=== PATIENT | male | born 1945 | race Caucasian/White ===

== ENCOUNTER 2017-03-02 11:14 | Inpatient (IN) | payer MEDICARE, OTHER ==
[~2017-03-02] VITALS: Ht 180.3 cm; Wt 86.0 kg
[2017-03-02 11:28] LABS: HEMATOCRIT 44.1 % (39.2-51.8); HEMOGLOBIN 14.9 g/dL (13.7-18.0); WHITE BLOOD COUNT 6.5 x10^3/uL (3.4-10)
[2017-03-02 11:39] LABS: ASPARTATE AMINO TRANSFERASE 14 U/L (15-37); BLOOD UREA NITROGEN 14 mg/dL (7-18)
[2017-03-02] MEDS ORDERED: PLEASE ENTER HEIGHT AND WEIGHT MC SCH (12:00)
[2017-03-02] MEDS ORDERED: POLYETHYLENE GLYCOL 17 GM PACKET PO PRN (12:30)
[2017-03-02] MEDS ORDERED: OXYcodone IR 5MG TABLET PO PRN (12:30)
[2017-03-02] MEDS ORDERED: morphine SULFATE 10 MG/ML, 1ML IVPush PRN (12:30)
[2017-03-02] MEDS ORDERED: ONDANSETRON 2MG/ML, 2ML IVPush PRN (12:30)
[2017-03-02] MEDS ORDERED: METF500T4 PO (12:44)
[2017-03-02] MEDS ORDERED: LISI5TAB7 PO (12:44)
[2017-03-02] MEDS ORDERED: SIMV40TA3 PO (12:44)
[2017-03-02] MEDS ORDERED: MULT-412 PO (12:44)
[2017-03-02] MEDS ORDERED: CHOL400C PO (12:44)
[2017-03-02 15:01] VITALS: BP 146/63
[2017-03-02] MEDS: SODIUM CHLORIDE 0.9% 1,000 ML IV SCH ×2 (15:15→22:16)
[2017-03-02] MEDS: FAMOTIDINE 20 MG/2 ML IVPush SCH (21:00)
[2017-03-02] MEDS: SIMVASTATIN 40 MG TABLET PO SCH (21:00)
[2017-03-03] MEDS: SODIUM CHLORIDE 0.9% 1,000 ML IV SCH (00:26)
[2017-03-03 04:00] VITALS: BP 136/67
[2017-03-03 04:28] LABS: HEMATOCRIT 41.6 % (39.2-51.8); HEMOGLOBIN 14.1 g/dL (13.7-18.0); WHITE BLOOD COUNT 9.3 x10^3/uL (3.4-10)
[2017-03-03 04:54] LABS: ASPARTATE AMINO TRANSFERASE 12 U/L (15-37); BLOOD UREA NITROGEN 13 mg/dL (7-18)
[2017-03-03] MEDS ORDERED: LISINOPRIL 5 MG TABLET PO SCH (09:00)
[2017-03-03] MEDS: SENNA/DOCUSATE TABLET PO SCH (10:02)
[2017-03-03] MEDS: TAMSULOSIN 0.4 MG CAP.ER.24H PO SCH (10:02)
[2017-03-03] MEDS: CARVEDILOL 6.25 MG TABLET PO SCH ×2 (10:02→20:55)
[2017-03-03] MEDS: FAMOTIDINE 20 MG/2 ML IVPush SCH ×2 (10:03→20:54)
[2017-03-03] MEDS: LISINOPRIL 10 MG TABLET PO SCH ×2 (10:03→20:54)
[2017-03-03] MEDS: ACETAMINOPHEN 325 MG TABLET PO PRN (13:24)
[2017-03-03] MEDS: INSULIN ASPART 100 UNITS/ML, PEN SQ-INSULIN SCH ×2 (17:33→21:00)
[2017-03-03] MEDS: SIMVASTATIN 40 MG TABLET PO SCH (20:55)
[2017-03-03] MEDS: TEMAZEPAM 15 MG CAPSULE PO PRN (23:00)
[2017-03-04 04:00] VITALS: BP 123/67
[2017-03-04] MEDS: INSULIN ASPART 100 UNITS/ML, PEN SQ-INSULIN SCH ×4 (07:00→21:12)
[2017-03-04] MEDS: FAMOTIDINE 20 MG/2 ML IVPush SCH ×2 (07:39→21:08)
[2017-03-04] MEDS: CARVEDILOL 6.25 MG TABLET PO SCH ×2 (07:40→21:08)
[2017-03-04] MEDS: LISINOPRIL 10 MG TABLET PO SCH (07:40)
[2017-03-04] MEDS: SENNA/DOCUSATE TABLET PO SCH (07:40)
[2017-03-04] MEDS: TAMSULOSIN 0.4 MG CAP.ER.24H PO SCH (07:41)
[2017-03-04] MEDS ORDERED: LISINOPRIL 10 MG TABLET PO ONE (09:00)
[2017-03-04 18:31] VITALS: BP 163/93
[2017-03-04] MEDS: LISINOPRIL 20 MG TABLET PO SCH (21:08)
[2017-03-04] MEDS: SIMVASTATIN 40 MG TABLET PO SCH (21:08)
[2017-03-04] MEDS: TEMAZEPAM 15 MG CAPSULE PO PRN (21:39)
[2017-03-04 23:48] VITALS: BP 173/81
[2017-03-05] VITALS (14 sets, daily range): BP systolic 132–187; BP diastolic 75–100
[2017-03-05] MEDS ORDERED: ENALAPRILAT 1.25 MG/ML, 2ML IV PRN (00:30)
[2017-03-05] MEDS ORDERED: hydrALAzine 20 MG/ML, 1ML IV PRN (04:30)
[2017-03-05 05:37] LABS: HEMATOCRIT 44.3 % (39.2-51.8); HEMOGLOBIN 15.1 g/dL (13.7-18.0); WHITE BLOOD COUNT 9.1 x10^3/uL (3.4-10)
[2017-03-05 05:48] LABS: ASPARTATE AMINO TRANSFERASE 10 U/L (15-37); BLOOD UREA NITROGEN 14 mg/dL (7-18)
[2017-03-05] MEDS: INSULIN ASPART 100 UNITS/ML, PEN SQ-INSULIN SCH ×4 (08:05→21:35)
[2017-03-05] MEDS: FAMOTIDINE 20 MG/2 ML IVPush SCH (09:00)
[2017-03-05] MEDS: SENNA/DOCUSATE TABLET PO SCH (11:02)
[2017-03-05] MEDS: TAMSULOSIN 0.4 MG CAP.ER.24H PO SCH (11:02)
[2017-03-05] MEDS: CARVEDILOL 6.25 MG TABLET PO SCH ×2 (11:02→21:33)
[2017-03-05] MEDS: LISINOPRIL 20 MG TABLET PO SCH ×2 (11:03→21:34)
[2017-03-05] MEDS: SIMVASTATIN 40 MG TABLET PO SCH (21:34)
[2017-03-05] MEDS: FAMOTIDINE 20 MG TABLET PO SCH (21:34)
[2017-03-06] VITALS (7 sets, daily range): BP systolic 151–170; BP diastolic 72–93
[2017-03-06] MEDS: ACETAMINOPHEN 325 MG TABLET PO PRN ×2 (00:44→15:18)
[2017-03-06] MEDS: TAMSULOSIN 0.4 MG CAP.ER.24H PO SCH (09:16)
[2017-03-06] MEDS: SENNA/DOCUSATE TABLET PO SCH (09:16)
[2017-03-06] MEDS: LISINOPRIL 20 MG TABLET PO SCH ×2 (09:17→20:40)
[2017-03-06] MEDS: FAMOTIDINE 20 MG TABLET PO SCH ×2 (09:17→20:45)
[2017-03-06] MEDS: CARVEDILOL 6.25 MG TABLET PO SCH ×2 (09:17→20:40)
[2017-03-06] MEDS: INSULIN ASPART 100 UNITS/ML, PEN SQ-INSULIN SCH ×4 (10:28→20:43)
[2017-03-06] MEDS ORDERED: hydrALAzine 20 MG/ML, 1ML IV PRN (10:30)
[2017-03-06] MEDS ORDERED: hydrALAzine 20 MG/ML, 1ML ONE ×2 (12:15→15:12)
[2017-03-06] MEDS: hydrALAzine 20 MG/ML, 1ML IV PRN ×3 (12:17→22:23)
[2017-03-06] MEDS ORDERED: AMLODIPINE 5 MG TABLET PO ONE (17:00)
[2017-03-06] MEDS: AMLODIPINE 5 MG TABLET PO SCH (17:09)
[2017-03-06] MEDS: ATORVASTATIN 20 MG TABLET PO SCH (20:40)
[2017-03-06] MEDS: ENALAPRILAT 1.25 MG/ML, 2ML IV PRN (23:36)
[2017-03-07 00:46] VITALS: BP 156/89
[2017-03-07] MEDS: hydrALAzine 20 MG/ML, 1ML IV PRN ×2 (01:21→18:13)
[2017-03-07 02:45] VITALS: BP 146/75
[2017-03-07] MEDS: INSULIN ASPART 100 UNITS/ML, PEN SQ-INSULIN SCH ×4 (07:53→22:09)
[2017-03-07 08:05] VITALS: BP 156/89
[2017-03-07] MEDS: FAMOTIDINE 20 MG TABLET PO SCH ×2 (08:32→22:03)
[2017-03-07] MEDS: CARVEDILOL 6.25 MG TABLET PO SCH ×2 (08:32→22:03)
[2017-03-07] MEDS: AMLODIPINE 5 MG TABLET PO SCH ×2 (08:32→22:02)
[2017-03-07] MEDS: TAMSULOSIN 0.4 MG CAP.ER.24H PO SCH (08:32)
[2017-03-07] MEDS: LISINOPRIL 20 MG TABLET PO SCH ×2 (08:33→22:03)
[2017-03-07] MEDS: SENNA/DOCUSATE TABLET PO SCH (08:33)
[2017-03-07] MEDS: BISACODYL 10 MG SUPP PR PRN ×2 (10:17→15:23)
[2017-03-07 14:00] VITALS: BP 148/82
[2017-03-07] MEDS ORDERED: GOLYTELY 4,000ML ORAL.SOL PO ONE (16:00)
[2017-03-07] MEDS ORDERED: ARTIFICIAL TEARS OPHTH SOLN 15ML EACHEYE PRN (16:00)
[2017-03-07 18:05] VITALS: BP 176/95
[2017-03-07] MEDS ORDERED: ONDANSETRON 2MG/ML, 2ML IVPush PRN (18:30)
[2017-03-07] MEDS ORDERED: POLYETHYLENE GLYCOL 17 GM PACKET PO PRN (18:30)
[2017-03-07] MEDS ORDERED: OXYcodone IR 5MG TABLET PO PRN (18:30)
[2017-03-07] MEDS: ATORVASTATIN 20 MG TABLET PO SCH (21:00)
[2017-03-07 21:21] VITALS: BP 142/72
[2017-03-08] MEDS: hydrALAzine 20 MG/ML, 1ML IV PRN (01:03)
[2017-03-08 01:30] VITALS: BP 179/83
[2017-03-08] MEDS: ENALAPRILAT 1.25 MG/ML, 2ML IV PRN (02:22)
[2017-03-08 03:23] VITALS: BP 147/78
[2017-03-08 05:33] LABS: BLOOD UREA NITROGEN 21 mg/dL (7-18)
[2017-03-08 08:13] VITALS: BP 151/73
[2017-03-08] MEDS: INSULIN ASPART 100 UNITS/ML, PEN SQ-INSULIN SCH ×4 (08:17→20:58)
[2017-03-08] MEDS: CARVEDILOL 6.25 MG TABLET PO SCH ×2 (08:17→20:59)
[2017-03-08] MEDS: LISINOPRIL 20 MG TABLET PO SCH ×2 (08:17→20:59)
[2017-03-08] MEDS: FAMOTIDINE 20 MG TABLET PO SCH ×2 (08:17→20:59)
[2017-03-08] MEDS: AMLODIPINE 5 MG TABLET PO SCH ×2 (08:18→20:59)
[2017-03-08] MEDS: TAMSULOSIN 0.4 MG CAP.ER.24H PO SCH (08:18)
[2017-03-08] MEDS: SENNA/DOCUSATE TABLET PO SCH (08:18)
[2017-03-08 15:00] VITALS: BP 151/78
[2017-03-08] MEDS ORDERED: FUROSEMIDE 40 MG/4 ML IV ONE (16:30)
[2017-03-08] MEDS ORDERED: POTASSIUM CHLORIDE 20 MEQ TAB.ER.PRT PO ONE (16:30)
[2017-03-08 20:59] VITALS: BP 155/78
[2017-03-08] MEDS: ATORVASTATIN 20 MG TABLET PO SCH (20:59)
[2017-03-09] VITALS (7 sets, daily range): BP systolic 135–165; BP diastolic 73–85
[2017-03-09] MEDS: ACETAMINOPHEN 325 MG TABLET PO PRN ×2 (00:46→17:33)
[2017-03-09] MEDS: TAMSULOSIN 0.4 MG CAP.ER.24H PO SCH (08:25)
[2017-03-09] MEDS: FAMOTIDINE 20 MG TABLET PO SCH ×2 (08:25→20:30)
[2017-03-09] MEDS: AMLODIPINE 5 MG TABLET PO SCH ×2 (08:25→20:30)
[2017-03-09] MEDS: LISINOPRIL 20 MG TABLET PO SCH ×2 (08:25→20:30)
[2017-03-09] MEDS: CARVEDILOL 6.25 MG TABLET PO SCH ×2 (08:25→20:30)
[2017-03-09] MEDS: SENNA/DOCUSATE TABLET PO SCH (08:26)
[2017-03-09] MEDS: INSULIN ASPART 100 UNITS/ML, PEN SQ-INSULIN SCH ×4 (08:26→20:44)
[2017-03-09 08:55] LABS: BLOOD UREA NITROGEN 18 mg/dL (7-18)
[2017-03-09] MEDS: ATORVASTATIN 20 MG TABLET PO SCH (20:30)
[2017-03-10] VITALS (7 sets, daily range): BP systolic 124–153; BP diastolic 67–79
[2017-03-10] MEDS: ACETAMINOPHEN 325 MG TABLET PO PRN ×2 (00:43→19:26)
[2017-03-10] MEDS: hydrALAzine 20 MG/ML, 1ML IV PRN (00:47)
[2017-03-10 05:48] LABS: BLOOD UREA NITROGEN 16 mg/dL (7-18)
[2017-03-10] MEDS: TAMSULOSIN 0.4 MG CAP.ER.24H PO SCH (08:18)
[2017-03-10] MEDS: FAMOTIDINE 20 MG TABLET PO SCH ×2 (08:18→22:09)
[2017-03-10] MEDS: HYDROCHLOROTHIAZIDE 25 MG TABLET PO SCH (08:18)
[2017-03-10] MEDS: CARVEDILOL 6.25 MG TABLET PO SCH ×2 (08:18→22:08)
[2017-03-10] MEDS: LISINOPRIL 20 MG TABLET PO SCH ×2 (08:18→22:10)
[2017-03-10] MEDS: INSULIN ASPART 100 UNITS/ML, PEN SQ-INSULIN SCH ×4 (08:19→22:10)
[2017-03-10] MEDS: AMLODIPINE 5 MG TABLET PO SCH ×2 (08:23→22:09)
[2017-03-10] MEDS: SENNA/DOCUSATE TABLET PO SCH (09:00)
[2017-03-10] MEDS: ATORVASTATIN 20 MG TABLET PO SCH (21:00)
[2017-03-11] MEDS: ACETAMINOPHEN 325 MG TABLET PO PRN ×3 (00:41→20:42)
[2017-03-11 01:24] VITALS: BP 119/73
[2017-03-11 08:07] VITALS: BP 125/69
[2017-03-11] MEDS: TAMSULOSIN 0.4 MG CAP.ER.24H PO SCH (08:09)
[2017-03-11] MEDS: LISINOPRIL 20 MG TABLET PO SCH ×2 (08:09→20:42)
[2017-03-11] MEDS: INSULIN ASPART 100 UNITS/ML, PEN SQ-INSULIN SCH ×4 (08:09→20:42)
[2017-03-11] MEDS: SENNA/DOCUSATE TABLET PO SCH (08:10)
[2017-03-11] MEDS: HYDROCHLOROTHIAZIDE 25 MG TABLET PO SCH (08:10)
[2017-03-11] MEDS: AMLODIPINE 5 MG TABLET PO SCH ×2 (08:10→20:41)
[2017-03-11] MEDS: FAMOTIDINE 20 MG TABLET PO SCH ×2 (08:10→20:41)
[2017-03-11] MEDS: CARVEDILOL 6.25 MG TABLET PO SCH ×2 (08:10→20:41)
[2017-03-11 13:39] LABS: ASPARTATE AMINO TRANSFERASE 10 U/L (15-37); BLOOD UREA NITROGEN 18 mg/dL (7-18)
[2017-03-11 15:30] VITALS: BP 141/76
[2017-03-11 16:15] VITALS: BP 113/72
[2017-03-11] MEDS ORDERED: PEG15DRO4 EACHEYE (17:53)
[2017-03-11] MEDS ORDERED: CARV6.2512 PO (17:53)
[2017-03-11] MEDS ORDERED: HYDR-3343 PO (17:53)
[2017-03-11] MEDS ORDERED: TAMS-11 PO (17:53)
[2017-03-11] MEDS ORDERED: HYDR25TA6 PO (17:53)
[2017-03-11] MEDS ORDERED: LISI-170 PO (17:53)
[2017-03-11] MEDS ORDERED: AMLO5TAB2 PO (17:53)
[2017-03-11] MEDS ORDERED: TRAM50TA2 PO (17:53)
[2017-03-11] MEDS ORDERED: FAMO20TA7 PO (17:53)
[2017-03-11 19:22] VITALS: BP 130/70
[2017-03-11] MEDS: ATORVASTATIN 20 MG TABLET PO SCH (20:41)
[2017-03-12 03:45] VITALS: BP 124/74
[2017-03-12 06:27] LABS: BLOOD UREA NITROGEN 21 mg/dL (7-18)
[2017-03-12] MEDS: INSULIN ASPART 100 UNITS/ML, PEN SQ-INSULIN SCH (07:00)
[2017-03-12 07:56] VITALS: BP 150/81
[2017-03-12] MEDS: HYDROCHLOROTHIAZIDE 25 MG TABLET PO SCH (08:20)
[2017-03-12] MEDS: TAMSULOSIN 0.4 MG CAP.ER.24H PO SCH (08:20)
[2017-03-12] MEDS: CARVEDILOL 6.25 MG TABLET PO SCH (08:20)
[2017-03-12] MEDS: LISINOPRIL 20 MG TABLET PO SCH (08:20)
[2017-03-12] MEDS: AMLODIPINE 5 MG TABLET PO SCH (08:20)
[2017-03-12] MEDS: FAMOTIDINE 20 MG TABLET PO SCH (08:20)
[2017-03-12] MEDS: SENNA/DOCUSATE TABLET PO SCH (08:22)
== END 2017-03-12 09:33 | DRG 64 ==
LOC: ED 11:45 → EDIP 11:46 → ED 11:58 → CCU 13:38 → 5SO 03-04 16:57
PROVIDERS: ADMIT Internal Medicine; ATTEND Internal Medicine
DX: I61.8 Other nontraumatic intracerebral hemorrhage (principal); G93.40 Encephalopathy, unspecified; E11.65 Type 2 diabetes mellitus with hyperglycemia; E87.1 Hypo-osmolality and hyponatremia; G81.91 Hemiplegia, unspecified affecting right dominant side; R47.01 Aphasia; I10 Essential (primary) hypertension; I16.0 Hypertensive urgency; N40.0 Benign prostatic hyperplasia without lower urinary tract symptoms; R47.1 Dysarthria and anarthria; E78.5 Hyperlipidemia, unspecified; E55.9 Vitamin D deficiency, unspecified; K59.00 Constipation, unspecified; R09.02 Hypoxemia; Z80.9 Family history of malignant neoplasm, unspecified; Z79.899 Other long term (current) drug therapy; Z79.1 Long term (current) use of non-steroidal anti-inflammatories (NSAID); Z87.891 Personal history of nicotine dependence
CPT/HCPCS: 36415; 70450; 74000; 80047; 80048; 80053; 82306; 82962; 83036; 83735; 84100; 84439; 84443; 84484; 85025; 85520; 85610; 85730; 87081; 93005; 93970; 99291; J1815; J1940; J2405; 92523-GN; J0360; J2270; J7030; J7050; S0028